=== PATIENT | female | born 1980 | race Caucasian/White ===

== ENCOUNTER 2017-08-02 21:25 | Emergency (ER) | payer OTHER ==
[~2017-08-02] VITALS: Ht 154.9 cm; Wt 55.9 kg
[2017-08-02 21:38] VITALS: BP 96/68; PULSE 79; RESP 16; O2SAT 99
--- NOTE | 2017-08-02 23:15 | ED.REPORT ---
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 The pain is described as sharp, burning pain that began on 07/26/2017. The heel became red and swollen soon after but this has since resolved. However the pain is now radiating into her left leg, hip and back. The pt does not believe that she has injured the heel but does walk frequently for work. Nursing Notes Stated Complaint: PAIN IN LEFT HEEL, LEG & HIP Chief Complaint: Extremity Trauma Nursing Notes Reviewed: Yes Allergies: Coded Allergies: etodolac (Verified Allergy, Unknown, 08/02/17) gabapentin (Verified Allergy, Unknown, 08/02/17) General Time Seen by MD: 23:12 Chief Complaint Other (Left heel pain) Hx Obtained From: Patient Arrived By: Walk-in Onset Occurred: 1 week ago Symptom Duration: Since onset Recent Healthcare: No recent doctor visit, No recent hospitalization Similar Sx Previous: No Past Medical History Past Medical History Asthma Chronic pain IBS Sciatica Past Surgical History Hysterectomy RFA of sciatic nerve Family History Noncontributory Social History Other Social History: Good social support, , Lives with children, Local resident Ambulatory Status Independent Review of Systems Review of Systems Note: redness of left heel, resolved Musculoskeletal: Reports: Back pain, Extremity pain, Extremity swelling ( resolved) Skin: Denies Rash Complete sys rev & neg: except as marked. Respiratory: Denies: Non-productive cough, Shortness of breath Cardiovascular: Denies: Chest pain GI: Denies: Abdominal pain, Vomiting Physical Exam Initial Vital Signs Vital Signs (First) Date Time Temp Pulse Resp B/P Pulse Ox O2 Delivery O2 Flow Rate FiO2 08/02/17 21:38 36.8 79 16 96/68 99 Initial VS: Reviewed Lower Extremity / Pelvis / MS: Atraumatic, Full range of motion Ankle / Foot: Atraumatic, Full range of motion General/Constitutional: Awake, Alert Respiratory / Chest: Atraumatic, Breath sounds NL, Breath sounds = bilat, No respiratory distress Cardiovascular: Heart rate NL, Regular rhythm, Heart sounds NL, No gallop, No murmurs, No rubs Skin: Atraumatic, Color NL, No rash, Warm, Dry Neurologic: Oriented X3, Speech NL, No motor deficits, No sensory deficits strength and sensation intact in the bilateral lower extremities Head / Eyes: Atraumatic, Normocephalic, PERRL, EOMI ENT: Atraumatic, Airway patent, Mucous membranes moist Neck: Atraumatic, Supple, Full range of motion Abdomen: Atraumatic, Soft, Non-tender Back: Atraumatic, Full range of motion Additional Notes: tenderness about the left paraspinal region no cervical, thoracic or lumbar midline tenderness Upper Extremity / MS: Atraumatic, Full range of motion Psychiatric: Affect NL, Mood NL Interpretation & Diagnostics Lab Results Interpretation Test 08/02/17 23:40 Hold Urine Received (Received) Re-Eval/Medical Decision Med Decision/Clinical Course Patient is a relatively healthy 37-year-old female with a long history of sciatica who presents to the emergency department complaining of pain radiating down her entire left leg that is similar to her previous sciatica. She initially states that she has noticed some redness and swelling of her heel however examination reveals absolutely no evidence thereof. Notably there is no evidence whatsoever of acute traumatic injury, cellulitis, abscess or infectious process. The description of her pain is completely consistent with sciatica which she has experienced in the past. She has no neurologic deficits , weakness or sensory deficits in her left leg. She has no history of IV drug use or fevers. Presentation is not suggestive of epidural or paraspinal abscess. She is not on blood thinners and has had no trauma and her presentation is not suggestive of epidural hematoma. There are no findings on examination suggestive of central cord impingement. There are no findings suggestive of cauda equina syndrome. I have provided her with a 5 day course of steroids. She will use ice packs, hot packs and stretching exercises. She will follow up closely with her primary care physician. All questions were answered and the patient is comfortable with this plan. Prior to discharge follow-up and return precautions were reviewed in detail with the patient who verbalized understanding and agreement with the plan. The patient was discharged in stable condition. Source of Hx: Old records Re-Evaluation/Progress : Time of Eval: 23:37 Patient Status: Condition improved Re-Evaluation/Progress Note: Pt informed of the diagnosis and plan for discharge during the initial interview. The pt understands and agrees with the plan. All questions are addressed at this time. Counseled Regarding: Diagnosis, Need for follow-up, When/why to return to ED Discharge & Departure Impression: Primary Impression: Sciatica Laterality: left Qualified Code: M54.32 - Sciatica, left side Additional Impression: Low back pain Chronicity: acute Back pain laterality: left Sciatica presence: with sciatica Sciatica laterality: sciatica of left side Qualified Code: M54.42 - Lumbago with sciatica, left side Disposition: Home Discharge Condition All VS Reviewed: Yes Condition: Stable Patient Instructions: Sciatica (ED) Additional Instructions: Thank you for seeking care at the emergency room. It is difficult for us to make definitive diagnoses in the ED but we believe that you are experiencing sciatica. Our primary goal today in the Emergency Department was to evaluate you for any life-threatening conditions. Your evaluation was reassuring. Apply ice packs and heat packs. Rest and stretch. You will be discharged with a prescription for Prednisone. Take this medication as prescribed. You should follow-up with your primary doctor in the next week. You should return to the Emergency Department immediately if you develop worsening pain, fevers, vomiting, cough, shortness of breath, chest pain, lightheadedness, weakness or any other concerning signs or symptoms. Thank you for letting us partake in your care today. Referrals: Artemio Hadley Attestation Portions of this note were transcribed by Marcie Dimas. I, Dr. Kimbrough personally performed the history, physical exam and medical decision-making; I reviewed and confirmed the accuracy of the information in the transcribed note. copies to: Artemio Hadley Beck O MD Aug 02, 2017 23:15 MARCIE DIMAS Aug 02, 2017 23:25
[2017-08-03] MEDS ORDERED: _PredniSONE 10 mg Tablet PO SCH (08:00)
== END 2017-08-03 00:04 | disposition home or self-care (01) ==
LOC: SED 21:25
DX: M54.42 Lumbago with sciatica, left side (principal); J45.909 Unspecified asthma, uncomplicated; Z88.8 Allergy status to other drugs, medicaments and biological substances